=== PATIENT | female | born 2000 | race American Indian/Alaskan Native ===

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

== ENCOUNTER 2020-05-21 13:30 | Emergency (ER) | payer OTHER, BC ==
[2020-05-21] MEDS ORDERED: SODIUM CHLORIDE IRRI 500 ML 500 ML IR ONE (14:02)
[2020-05-21] MEDS ORDERED: IBUPROFEN 600 MG TAB PO ONE (14:13)
[2020-05-21 14:20] VITALS: BP 122/68
[2020-05-21] MEDS ORDERED: SODIUM CHLORIDE 0.9% IRR 500 ML BOTTLE IR ONE (14:20)
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
[2020-05-21] MEDS ORDERED: BACITRACIN/POLYMYXIN B OINT 28.35 GM TP ONE (14:37)
== END 2020-05-21 15:57 | disposition home or self-care (01) ==
LOC: ED 13:30
DX: S16.1XXA Strain of muscle, fascia and tendon at neck level, initial encounter (principal); S00.81XA Abrasion of other part of head, initial encounter; J45.909 Unspecified asthma, uncomplicated; Z79.899 Other long term (current) drug therapy; Z98.890 Other specified postprocedural states; V49.59XA Passenger injured in collision with other motor vehicles in traffic accident, initial encounter; Y92.410 Unspecified street and highway as the place of occurrence of the external cause; Y93.89 Activity, other specified; Y99.8 Other external cause status
CPT/HCPCS: 99282